=== PATIENT | male | born 2000 | race Caucasian/White ===

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

== ENCOUNTER 2018-02-08 10:06 | Emergency (ER) | payer OTHER ==
[~2018-02-08] VITALS: Ht 180.3 cm; Wt 93.2 kg
[2018-02-08 10:11] VITALS: TEMP 98.6
[2018-02-08 14:32] VITALS: BP 111/71; PULSE 55
== END 2018-02-08 14:32 | disposition home or self-care (01) ==
LOC: COL.ER 10:06
DX: C71.6 Malignant neoplasm of cerebellum (principal); Z98.890 Other specified postprocedural states
CPT/HCPCS: A9585; J2060; J7030